=== PATIENT | female | born 1940 | race Caucasian/White ===

== ENCOUNTER 2018-05-02 01:33 | Observation (INO) | payer MEDICARE, OTHER ==
[~2018-05-02] VITALS: Ht 160 cm; Wt 79.4 kg
[2018-05-02] VITALS (18 sets, daily range): BP systolic 113–167; BP diastolic 58–116
[~2018-05-02 01:33] MED LIST: LEVO25TA57 PO; LOSA-54 PO; METO-253 PO; OMEP40CA48 PO; PRIM50TA PO; SIMV-54 PO; TRAZ50TA34 PO
[2018-05-02] MEDS ORDERED: FAMOTIDINE 20 MG TAB PO ONE (05:20)
[2018-05-02] MEDS ORDERED: MIDAZOLAM 2 MG/2 ML VIAL IVP PRN (05:20)
[2018-05-02] MEDS ORDERED: NORMOSOL R SOLN(*) 1000 ML BAG 1,000 ML IV PRN (05:20)
[2018-05-02] MEDS ORDERED: fentaNYL CITR 250 MCG/5 ML AMP ONE (07:55)
[2018-05-02] MEDS ORDERED: DEXAMETHASONE SOD 4 MG/ML VIAL ONE (07:55)
[2018-05-02] MEDS ORDERED: PROPOFOL EMUL(*) 10MG/ML 20 ML 20 ML ONE (07:55)
[2018-05-02] MEDS ORDERED: LIDOCAINE MPF 1% 5 ML VIAL ONE (07:55)
[2018-05-02] MEDS ORDERED: ONDANSETRON 4 MG/2 ML VIAL ONE (07:55)
[2018-05-02] MEDS ORDERED: LIDOCAINE/SOD BICARB 8.4% SYR ID ONE (08:50)
[2018-05-02] MEDS ORDERED: CLINDAMYCIN(*) 600 MG/NS 50 ML 50 ML IVPB ONE (08:50)
[2018-05-02] MEDS ORDERED: METOPROLOL TART 50 MG TAB PO ONE (08:55)
[2018-05-02] MEDS ORDERED: BACITRACIN OINT 15 GM TUBE TP ONE (09:09)
[2018-05-02] MEDS ORDERED: LIDO/EPI 1% MDV 1:100,000 20ML INFIL ONE (09:09)
[2018-05-02] MEDS ORDERED: ePHEDrine 25 MG/5 ML DISP.SYR IVP ONE (09:20)
[2018-05-02] MEDS ORDERED: LR(*) 1000 ML BAG 1,000 ML IV PRN (11:30)
[2018-05-02] MEDS ORDERED: traZODone HCL 50 MG TAB PO PRN (11:30)
[2018-05-02] MEDS ORDERED: PROMETHAZINE 25 MG/ML 1 ML AMP IVP PRN (11:30)
[2018-05-02] MEDS ORDERED: ACETAMINOPHEN 325 MG TAB PO PRN (11:30)
[2018-05-02] MEDS ORDERED: ONDANSETRON 4 MG ODT TABDP SL PRN (11:30)
[2018-05-02] MEDS ORDERED: MORPHINE 2 MG/ML SYR IVP PRN (11:30)
--- NOTE | 2018-05-02 11:30 | Post Operative Note ---
Operative Note - ENT Operative Day Date: May 02, 2018 Physicians Surgeon: Rick Basket Braider: Rox Anesthesia: LMA Diagnosis Pre-Op Diagnosis: right parotid mass Post-Op Diagnosis: same Procedure Procedure(s): right superficial parotidectomy Specimen Removed:(Maybe N/A): right superficial parotid Complications: none Fluids Fluids: see anesthesia note Estimated Blood Loss: 100 ml MIGUEL NIXON JR, MD May 02, 2018 11:30
[2018-05-02] MEDS ORDERED: fentaNYL CITR 100 MCG/2 ML AMP ONE (11:46)
[2018-05-02] MEDS: APAP/HYDROCODONE 325/5 TAB PO PRN ×2 (13:07→13:35)
--- NOTE | 2018-05-02 13:26 | OPERATIVE REPORT 1 ---
EVENT DATE: May 02, 2018 SURGEON: Jayme Cabrera MD ANESTHESIOLOGIST: Forest Marie MD ANESTHESIA: LMA. SHELLFISH SORTER: Sonia Gramajo, SANE NURSE, CSFA PREOPERATIVE DIAGNOSIS Right parotid mass. POSTOPERATIVE DIAGNOSIS Right parotid mass. PROCEDURE PERFORMED Right superficial parotidectomy. INDICATIONS Please refer to the preoperative note. DESCRIPTION OF PROCEDURE The patient was positively identified in the preoperative area. Risks were again explained including, but not limited to, bleeding, infection, injury to the facial nerve, transient or permanent facial palsy and those associated with anesthesia. She acknowledged understanding those risks. She was then brought back to the operative suite, laid supine on the operating table and anesthesia was administered. Once asleep, the patient was positioned and prepped and draped in the usual sterile fashion. Of note, the facial nerve monitor was applied to the patient and utilized throughout the case. An incision was planned in the preauricular crease extending around to the lobule and into the neck greater than two fingerbreadths below the angle of mandible. Approximately 2 cc's of 1% lidocaine with epinephrine was infiltrated. The aforementioned incision was then made with #15 blade to underlying subcutaneous tissues and dissected with Bovie electrocautery. Soft tissue flap was elevated off the underlying parotid capsule. The anterior border of the sternocleidomastoid muscle was identified and used as a landmark. I carefully dissected into the parotid gland and rotated it forward until the facial nerve was found. This was confirmed with the nerve probe. The nerve was then traced to the pes and along its inferior and superior division, dissecting the parotid mass and involved tissue along with it. Given the suspicion for lymphoma, the specimen was sent fresh for pathologic evaluation. The wound bed was copiously irrigated with normal saline solution. Hemostasis was achieved. A Wally-Barnett drain was placed and secured to the skin with a suture. The skin flap was then closed in a multi-layer fashion. The patient was then turned to Anesthesia for emergence. ESTIMATED BLOOD LOSS 100 cc's. COMPLICATIONS No complications. MTDD
[2018-05-02] MEDS: PRIMIDONE 50 MG TAB PO SCH (13:36)
[2018-05-02] MEDS: LOSARTAN POTASSIUM 50 MG TAB PO SCH (13:36)
[2018-05-02] MEDS: HYDROCHLOROTHIAZIDE 25 MG TAB PO SCH (13:36)
[2018-05-02] MEDS ORDERED: DOCUSATE SODIUM 100 MG CAP PO SCH (21:00)
[2018-05-02] MEDS ORDERED: SIMVASTATIN 40 MG TAB PO SCH (21:00)
[2018-05-02] MEDS: BACITRACIN TP SCH (21:00)
[2018-05-02] MEDS: PANTOPRAZOLE SOD 40 MG TABEC PO SCH (21:00)
[2018-05-02] MEDS: METOPROLOL TART 50 MG TAB PO SCH (21:00)
[2018-05-03 03:03] VITALS: BP 139/68
[2018-05-03 07:09] VITALS: BP 152/85
[2018-05-03] MEDS ORDERED: DOXY-228 PO (07:45)
[2018-05-03] MEDS ORDERED: LOR5/325 PO (07:45)
[2018-05-03] MEDS ORDERED: BACI120O2 TP (07:45)
--- NOTE | 2018-05-03 07:48 | Short(Outpt) Discharge Summary ---
Discharge Summary Reason for Hosp/Final Diag: (1) Parotid mass Status: Resolved Hospital Course & Plan: Patient underwent right superficial parotidectomy on day of admission. Pain controlled. [place] reg diet. Departure Discharge to: Home Discharge Instructions Home Meds Active Scripts Hydrocodone Bit/Acetaminophen (HYDROCODON-ACETAMINOPHEN 5-325) 1 Each Tablet, 1 TAB PO Q6H PRN for MILD TO MODERATE PAIN, #15 TAB Prov:MIGUEL NIXON JR, MD 05/03/18 Reported Medications Trazodone Hcl (TRAZODONE HCL) 50 Mg Tablet, 50 MG PO QHS PRN for SLEEP 04/18/18 Simvastatin (SIMVASTATIN) 40 Mg Tablet, 40 MG PO HS, TAB 04/18/18 Primidone (PRIMIDONE) 50 Mg Tab, 50 MG PO, TAB 04/18/18 Omeprazole (OMEPRAZOLE) 40 Mg Capsule.dr, 40 MG PO BID, CAP 04/18/18 Metoprolol Tartrate (METOPROLOL TARTRATE) 50 Mg Tab, 1 TAB PO BID, TAB 04/18/18 Levothyroxine Sodium (SYNTHROID) 25 Mcg Tablet, 25 MCG PO QDAY 04/18/18 Losartan/Hydrochlorothiazide (LOSARTAN-HCTZ 100-25 MG TAB) 1 Each Tablet, PO QDA Y 04/18/18 Diet: Regular Activity: No Heavy Lifting, No Exertion Special Instructions: Follow up with Dr. Nixon on 05/09/18 @ 2: 15. Keep incision line clean with soap and water. Rx for norco, doxycycline and bacitracin eRx to [facility]. MIGUEL NIXON JR, MD May 03, 2018 07:48
[2018-05-03] MEDS ORDERED: LEVOTHYROXINE SOD 0.025 MG TAB PO SCH (09:00)
[2018-05-03] MEDS ORDERED: DOCUSATE SODIUM 100 MG CAP PO SCH (09:00)
[2018-05-03] MEDS: LOSARTAN POTASSIUM 50 MG TAB PO SCH (09:09)
[2018-05-03] MEDS: METOPROLOL TART 50 MG TAB PO SCH (09:10)
[2018-05-03] MEDS: HYDROCHLOROTHIAZIDE 25 MG TAB PO SCH (09:10)
[2018-05-03] MEDS: PRIMIDONE 50 MG TAB PO SCH (09:10)
[2018-05-03] MEDS: PANTOPRAZOLE SOD 40 MG TABEC PO SCH (09:10)
[2018-05-03] MEDS: BACITRACIN TP SCH (09:11)
== END 2018-05-03 07:48 | disposition home or self-care (01) ==
LOC: OR 01:33 → MED 12:55
PROVIDERS: ADMIT Otolaryngology; ATTEND Otolaryngology
DX: K11.8 Other diseases of salivary glands (principal)
CPT/HCPCS: 42410; 88305; A9270; G0378; J1100; J2001; J2405; J2704; J3010; J3490